=== PATIENT | female | born 1975 | race Caucasian/White ===

== ENCOUNTER → 2025-04-28 | Emergency (ER) | payer BC ==
[~2025-04-28] VITALS: Ht 160 cm; Wt 64.4 kg
[2025-04-28 10:29] VITALS: TEMP 98.5
[2025-04-28 11:14] VITALS: BP 115/75; O2SAT 97
== END | disposition home or self-care (01) ==
LOC: ER 11:55
DX: J06.9 Acute upper respiratory infection, unspecified (principal); B97.89 Other viral agents as the cause of diseases classified elsewhere